=== PATIENT | female | born 1990 | race Asian ===

== ENCOUNTER 2017-10-02 07:33 | Emergency (ER) | payer BC ==
[2017-10-02] MEDS ORDERED: Triple Antibiotic 0.94 gm Pkt TP STA (07:57)
[2017-10-02] MEDS ORDERED: Bacitracin pkt 1 gm Pkt TP ONE (08:06)
--- NOTE | 2017-10-02 08:10 | ED Physician Chart ---
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 pain, A/N/V/D/C, VB, fever, chills, paresthesias, weakness , pain, dizziness, gait changes, vertigo, bleeding, or urinary s/s Allergies:: Allergies Allergy/AdvReac Type Severity Reaction Status Date / Time No Known Allergies Allergy Verified 10/02/17 07:42 Vitals:: Vital Signs - 8 hr 10/02/17 07:42 Temp 98.6 F HR 105 RR 25 BP 136/87 O2 Sat % 98 Historian:: Patient Review:: Nurse's Note Reviewed ED Review of Systems - Review of Systems General/Constitutional: No fever, No chills, No weight loss, No weakness, No diaphoresis, No edema, No loss of appetite Skin: No skin lesions, No rash, No bruising Head: No headache, No light-headedness Eyes: No loss of vision, No pain, No diplopia ENT: No earache, No nasal drainage, No sore throat, No tinnitus Neck: No neck pain, No swelling, No thyromegaly, No stiffness, No mass noted Cardio Vascular: No chest pain, No palpitations, No PND, No orthopnea, No edema Pulmonary: No SOB, No cough, No sputum, No wheezing GI: No nausea, No vomiting, No diarrhea, No pain, No melena, No hematochezia, No constipation, No hematemesis G/U: No dysuria, No frequency, No hematuria, No nacturia 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: No vaginal discharge, No abnormal vaginal bleed, No contraction Musculoskeletal: No bone or joint pain, No back pain, No muscle pain Endocrine: No polyuria, No polydipsia Psychiatric: No prior psych history, No depression, No anxiety, No suicidal ideation, No homicidal ideation, No auditory hallucination, No visual hallucination Hematopoietic: No bruising, No lymphadenopathy Allergic/Immuno: No urticaria, No angioedema Neurological: No syncope, No focal symptoms, No weakness, No paresthesia, No headache, No seizure, No dizziness, No confusion, No vertigo ED Past Medical History - Past Medical History Obtainable: Yes Past Medical History: No significant medical hx, Other (IUP) Family History: None Social History: Non Smoker, No Alcohol, No Drug Use, Surgical History: None Psychiatricy History: None Medication: Reviewed ED Physical Exam - Physical Examination General/Constitutional: Awake, Well-developed, well-nourished, Alert, No distress, GCS 15, Non-toxic appearing, Ambulatory Head: Atraumatic Eyes: Lids, conjuctiva normal, PERRL, EOMI Skin: Nl inspection, No rash, No skin lesions, No ecchymosis, Well hydrated, No lymphadenopathy Other Skin comments:: Supreficial left forearm wound; no FBs; full ROMs of all joints; no septic joints; no tenderness; no ligament instability; no bleeding; good motor, tendon , and sensory functions; good NV functions ENMT: External ears, nose nl, TM canals nl, Nasal exam nl, Lips, teeth, gums nl , Oropharynx nl, Tonsils nl Neck: Nontender, Full ROM w/o pain, No JVD, No nuchal rigidity, No bruit, No mass, No stridor Other Neck comments:: supple; no meningeal signs; no cervical tenderness; no bruits Respiratory: Nl effort/Exclusion, Clear to Auscultation, No Wheeze/Rhonchi/Rales Cardio Vascular: RRR, No murmur, gallop, rubs, NL S1 S2, Carotid/Femoral/Distal pulses equal bilaterally GI: No tenderness/rebounding/guarding, No organomegaly, No hernia, Normal BS's, Nondistended, No mass/bruits, No McBurney tenderness Other GI comments:: no pulsatile masses : No CVA tenderness Extremities: No tenderness or effusion, Full ROM, normal strength in all extremities, No edema, Normal digits & nails Neuro/Psych: Alert/oriented, DTR's symmetric, Normal sensory exam, Normal motor strength, Judgement/insight normal, Mood normal, Normal gait, No focal deficits Misc: Normal back, No paraspinal tenderness ED Assessment - Procedures Procedures:: pt deferred suturing of wound Location:: left forearm Laceration Type:: Simple Prep/Irrigation:: thorough cleansing and irrigation with betadine and saline; neosporin ointment and dressing applied ED Septic Shock - . Is Septic Shock (SBP<90, OR Lactate>4 mmol\L) present?: No - <6hrs of presentation: Vital Signs: Vital Signs - 8 hr 10/02/17 07:42 Temp 98.6 F HR 105 RR 25 BP 136/87 O2 Sat % 98 ED Reassessment (Disposition) - Reassessment Reassessment:: pt is asymptomatic upon discharge Reassessment Condition:: Improved - Diagnosis Diagnosis:: Animal Bite; Dog Bite; Puncture Wounds; Left Forearm Dog Bite Wound; IUP - Aftercare/Follow up Instructions Aftercare/Follow-Up Instructions:: Counseled pt regarding lab results/diagnosis & need follow up, Refer to Discharge Instructions, Counseled pt & family regarding lab results/diagnosis & need follow up Medication Prescribed:: Rx: Keflex 500mg po qid x 10 days; Neosporin Ointment bid and dressing x 14 days ; Wound Care Instructions; IUP Care Instructions; Keep wound clean and dry - Patient Disposition Discharge/Transfer:: Home Condition at Disposition:: Stable, Improved (RTER prn if existing s/s reoccur and/or get worse and/or any other new s/s occur; ACIs given for all above Dx; Refer to Vascular Surgeon/OB-TEST EXAMINER Specialist/Explosives Truck Driver HUYEN; F/U with PMD in one day or prn; RTER prn if concerned) ED Discharge Plan - Patient Disposition Prescriptions: Cephalexin [Keflex] 500 mg PO QID #40 cap Neomycin Trevizo/Bacitrac Zn/Poly [Neosporin Antibiotic Ointment] 14.2 gm TP BID 14 Days #1 oint...g.
== END 2017-10-02 08:45 | disposition home or self-care (01) ==
LOC: ER 07:33
DX: O26.892 Other specified pregnancy related conditions, second trimester (principal); S51.832A Puncture wound without foreign body of left forearm, initial encounter; Z3A.24 24 weeks gestation of pregnancy; W54.0XXA Bitten by dog, initial encounter; Y93.89 Activity, other specified; Y92.89 Other specified places as the place of occurrence of the external cause; Y99.8 Other external cause status
CPT/HCPCS: X7704; Z7502